=== PATIENT | female | born 1970 | race Caucasian/White ===

== ENCOUNTER 2020-01-12 17:26 | Emergency (ER) | payer BC, OTHER ==
[~2020-01-12] VITALS: Ht 170.2 cm; Wt 81.8 kg
[~2020-01-12 17:26] MED LIST: DIAZ5TAB PO
[2020-01-12 18:48] VITALS: BP 136/52
== END 2020-01-12 18:32 | disposition home or self-care (01) ==
LOC: ER 17:26
DX: J02.9 Acute pharyngitis, unspecified (principal); R43.8 Other disturbances of smell and taste; R06.02 Shortness of breath; R05 Cough; R50.9 Fever, unspecified; R51.9 Headache, unspecified; R61 Generalized hyperhidrosis; Z20.828 Contact with and (suspected) exposure to other viral communicable diseases; Z87.440 Personal history of urinary (tract) infections; Z98.890 Other specified postprocedural states; Z88.5 Allergy status to narcotic agent; Z79.899 Other long term (current) drug therapy
CPT/HCPCS: 87635; 99283